=== PATIENT | male | born 1960 | race African-American/Black ===

== ENCOUNTER 2017-02-21 23:50 | Emergency (ER) | payer MEDICARE, BC ==
[2017-02-21 22:01] LABS: BASOPHILS 0.2 %; BASOPHILS ABSOLUTE 0.01 10/3/uL (0.0-0.16); EOSINOPHILS 3.5 %; ER CBC TAT 0 Hrs 10 Mins; HEMATOCRIT 34.5 % (40.0-51.0); HEMOGLOBIN 10.6 g/dL (13.6-17.8); LYMPHOCYTES 30.9 %; LYMPHOCYTES ABSOLUTE 1.74 10/3/uL (0.67-4.30); MANUAL DIFF NO %; MEAN CORPUS HGB CONC 30.7 g/dL (32.0-36.0); MEAN CORPUSCULAR HEMOGLOB 30.5 pg (26.0-34.0); MEAN CORPUSCULAR VOLUME 99.1 fL (80-100); MONOCYTES 11.3 %; MONOCYTES ABSOLUTE 0.64 10/3/uL (0.21-1.20); NEUTROPHILS 54.1 %; NEUTROPHILS ABSOLUTE 3.05 10/3/uL (2.02-8.40); PLATELET COUNT 78 10/3/uL (150-400); RBC DISTRIBUTION WIDTH 17.6 % (12.0-16.0); RED CELL COUNT 3.48 10/6/uL (4.7-6.1); WHITE BLOOD CELLS 5.6 10/3/uL (4.5-10.5)
[2017-02-21 22:09] LABS: PROTIME (NOT ORD) 13.2 SEC (12.0-14.5)
[2017-02-21 22:12] LABS: CHEST PAIN PROFILE TAT 0 Hrs 21 Mins; CHLORIDE, SERUM 101 MMOL/L (96-112); CO2 (CARBON DIOXIDE) 29 MMOL/L (24-34); GLUCOSE, SERUM 94 MG/DL (60-99); POTASSIUM, SERUM 4.2 MMOL/L (3.5-5.3); SODIUM, SERUM 142 MMOL/L (135-148); TROPONIN I <0.02 NG/ML (<0.05)
[2017-02-21 22:14] LABS: BUN (BLOOD UREA NITROGEN) 41 MG/DL (6-23); CALCIUM, SERUM 8.4 MG/DL (8.5-10.4); CREATININE 8.49 MG/DL (0.70-1.30); GFR AFRICAN AMERICAN 7 ML/MIN (>=60); GFR NON AFRICAN AMERICAN 6 ML/MIN (>=60); PLATELET ESTIMATE DEC (ADEQUATE)
[2017-02-21 22:15] LABS: ANISOCYTOSIS 1+ (5-10/OIF) (0-5/OIF); GIANT PLATELET RARE; HYPOCHROMIA 1+ (3-10/OIF) (0-2/OIF); OVALOCYTES 1+ (3-10/OIF) (0-2/OIF); SPHEROCYTES FEW (3-10/OIF)
[2017-02-21 22:16] LABS: TEARDROP SHAPED RBCS OCC (0-2/OIF)
[~2017-02-21 23:50] MED LIST: ACET500CAP PO; COREG6 PO; FOSRENOL1000 MG PO; MAGOX4 PO; NEUR300 PO; PRILO PO; PRILOSEC40 MG PO; TRAN200 PO; VITAMIN D1000 UNI1 PO; VOTRIENT200 MG PO; Z100 PO; Z300 PO; ZOCOR20 PO
== END 2017-02-22 02:29 | disposition home or self-care (01) ==
LOC: ER 23:50
PROVIDERS: Emergency Medicine
DX: R07.89 Other chest pain (principal); N18.6 End stage renal disease; Z91.013 Allergy to seafood; Z91.041 Radiographic dye allergy status; Z79.899 Other long term (current) drug therapy
CPT/HCPCS: 71020; 80048; 83735; 84484; 85025; 85610; 85730; 93005; 99285